=== PATIENT | female | born 1990 | race Hispanic/Latino ===

== ENCOUNTER 2018-04-03 14:40 | Emergency (ER) | payer OTHER ==
[2018-04-03 15:38] LABS: Absolute Lymphocytes (CBC) 3.2 K/uL (0.7-4.9); Absolute Monocytes 0.7 K/uL (0.1-1.3); Absolute Neutrophil 7.4 K/uL (1.8-8.0); BUN Blood Urea Nitrogen 6 mg/dL (6-20); Basophils % 0.4 % (0-1.3); Bicarbonate 25 mEq/L (21-31); Glucose Level 83 mg/dL (65-120); Hematocrit 39.9 % (36.0-45.0); MCH 29.7 pg (27.0-35.0); MCV 87.6 fL (80-100); MPV 7.7 fL (7.6-11.3); Monocytes % 6.1 % (3.3-12.3); Potassium 3.8 mEq/L (3.6-5.0); RBC Red Blood Cell Count 4.55 M/uL (3.86-4.86); Sodium Level 135 mEq/L (135-145)
[2018-04-03 16:02] LABS: Urine Blood 3+ (NEG); Urine Glucose NEGATIVE (NEG); Urine Protein 1+ (NEG); Urine pH 7.5 (5.0-7.0)
[2018-04-03 16:04] LABS: HCG, Quantitative 587.6 mIU/mL (<5)
--- NOTE | 2018-04-03 17:38 | EDPHYS ---
Physician Documentation [facility] Name: Gloria Coats Age: 28 yrs Sex: Female : 1990 Arrival Date: 04/03/2018 Time: 14:41 Bed 24 Private MD: Out, of [facility], [facility] ED Physician Benja Fagan HPI: 04/03 15:43 This 28 yrs old Female presents to ER via Ambulatory with complaints of pm1 Vaginal Bleeding, + Preg <12wks. 15:43 The patient presents to the emergency department with vaginal bleeding, that is light, pm1 reports using 1 pads or tampons per day. The estimated gestational age is 6 weeks. course: care: private OB physician, Seen about 1 week ago, Leakage of Fluid: none appreciated, Ultrasound: the patient had an ultrasound, Risk/complications: Preeclampsia with last child. Previous pregnancies: in previous pregnancies patient has had vaginal delivery. Associated signs and symptoms: Pertinent positives: cramping, Pertinent negatives: chest pain, diarrhea, dysuria, fever, nausea, shortness of breath, vaginal discharge, vomiting. The patient has experienced similar episodes in the past, several times. The patient has been recently seen by a physician: Last week for visit. 15:43 Patient with irregular menses, not certain of gestational age. 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 - Social history:: Smoking status: Patient uses tobacco products, denies chronic smoking, but will smoke occasionally. - Ebola Screening: : Patient negative for fever greater than or equal to 101.5 degrees Fahrenheit, and additional compatible Ebola Virus Disease symptoms Patient denies exposure to infectious person Patient denies travel to an Ebola-affected area in the 21 days before illness onset No symptoms or risks identified at this time. ROS: 15:53 Constitutional: Negative for fever, chills, and weight loss, Eyes: Negative for injury, pm1 pain, redness, and discharge, ENT: Negative for injury, pain, and discharge, Neck: Negative for injury, pain, and swelling, Cardiovascular: Negative for chest pain, palpitations, and edema, Respiratory: Negative for shortness of breath, cough, wheezing, and pleuritic chest pain, Back: Negative for injury and pain. 15:53 MS/Extremity: Negative for injury and deformity, Skin: Negative for injury, rash, and discoloration, Neuro: Negative for headache, weakness, numbness, tingling, and seizure. 15:53 Abdomen/GI: Positive for abdominal cramps, of the suprapubic area. 15:53 : Positive for vaginal bleeding, Negative for burning with urination, difficulty urinating. Exam: 15:53 Constitutional: This is a well developed, well nourished patient who is awake, alert, pm1 and in no acute distress. Head/Face: Normocephalic, atraumatic. Eyes: Pupils equal round and reactive to light, extra-ocular motions intact. Lids and lashes normal. Conjunctiva and sclera are non-icteric and not injected. Cornea within normal limits. Periorbital areas with no swelling, redness, or edema. ENT: Nares patent. No nasal discharge, no septal abnormalities noted. Tympanic membranes are normal and external auditory canals are clear. Oropharynx with no redness, swelling, or masses, exudates, or evidence of obstruction, uvula midline. Mucous membranes moist. Neck: Trachea midline, no thyromegaly or masses palpated, and no cervical lymphadenopathy. Supple, full range of motion without nuchal rigidity, or vertebral point tenderness. No Meningismus. Chest/axilla: Normal chest wall appearance and motion. Nontender with no deformity. No lesions are appreciated. Cardiovascular: Regular rate and rhythm with a normal S1 and S2. No gallops, murmurs, or rubs. No pulse deficits. Respiratory: Lungs have equal breath sounds bilaterally, clear to auscultation and percussion. No rales, rhonchi or wheezes noted. No increased work of breathing, no retractions or nasal flaring. Abdomen/GI: Soft, non-tender, with normal bowel sounds. No distension or tympany. No guarding or rebound. No evidence of tenderness throughout. Back: No spinal tenderness. No costovertebral tenderness. Full range of motion. Skin: Warm, dry with normal turgor. Normal color with no rashes, no lesions, and no evidence of cellulitis. MS/ Extremity: Pulses equal, no cyanosis. Neurovascular intact. Full, normal range of motion. 15:53 Neuro: Orientation: is normal, Motor: is normal, moves all fours, Gait: is steady, at a normal pace, without difficulty. Vital Signs: 14:58 BP 112 / 82; Pulse 86; Resp 17; Temp 97.3; Pulse Ox 98% on R/A; Weight 90.72 kg; Height aj 5 ft. 3 in. (160.02 cm); 16:24 BP 93 / 51; Pulse 67; Resp 17; Pulse Ox 97% on R/A; kr2 17:41 BP 102 / 68; Pulse 97; Resp 16; Pulse Ox 99% on R/A; kr2 14:58 Body Mass Index 35.43 (90.72 kg, 160.02 cm) aj MDM: 15:06 Patient medically screened. pm1 15:55 Data reviewed: vital signs. Data interpreted: Pulse oximetry: on room air is 98 %. pm1 Interpretation: normal. 17:31 Counseling: I had a detailed discussion with the patient and/or guardian regarding: the pm1 historical points, exam findings, and any diagnostic results supporting the discharge/admit diagnosis, lab results, radiology results, the need for outpatient follow up, an OB/Gyne specialist, to return to the emergency department if symptoms worsen or persist or if there are any questions or concerns that arise at home. 17:31 Refusal of service: The patient/guardian displays adequate decision making capability pm1 and despite a detailed discussion of alternatives, benefits, risks, and consequences refuses: Patient does not want to wait for the ultrasound results and urine. Patient instructed to follow up with OB in 48 hours for repeat beta hcg. Patient with beta hcg level 587. Impression: early , threatened miscarriage. 04/03 15:07 Order name: Quantitative Hcg; Complete Time: 16:04 pm1 04/03 15:07 Order name: Abo/rh Typing; Complete Time: 16:53 pm1 04/03 15:07 Order name: Basic Metabolic Panel; Complete Time: 16:04 pm1 04/03 15:07 Order name: CBC with Diff; Complete Time: 16:20 pm1 04/03 15:49 Order name: Urine Dipstick--Ancillary (enter results); Complete Time: 16:04 em1 04/03 15:49 Order name: Urine --Ancillary (enter results); Complete Time: 16:04 em1 04/03 15:07 Order name: Urine Test (obtain specimen); Complete Time: 15:49 pm1 04/03 15:07 Order name: IV Saline Lock; Complete Time: 15:48 pm1 04/03 15:07 Order name: Labs collected and sent; Complete Time: 15:48 pm1 04/03 15:07 Order name: NPO; Complete Time: 15:48 pm1 04/03 15:07 Order name: Urine Dipstick-Ancillary (obtain specimen); Complete Time: 15:49 pm1 04/03 15:43 Order name: US Transvaginal Ob pm1 04/03 17:30 Order name: Urine Microscopic Only pm1 Administered Medications: No medications were administered Point of Care Testing: Urine : 15:15 hCG Reading: Positive; kr2 Disposition: 19:06 Co-signature as Attending Physician, Benja Fagan MD. rn Disposition: 04/03/18 17:37 Discharged to Home. Impression: Threatened . - Condition is Stable. - Discharge Instructions: Threatened Miscarriage, Pelvic Rest. - Medication Reconciliation Form, Thank You Letter form. - Follow up: Emergency Department; When: As needed; Reason: Worsening of condition. Follow up: Private Physician; When: 48 Hours; Reason: Recheck today's complaints, Continuance of care, Repeat Beta-HCG (48 Hours), Re-evaluation by your physician. - Problem is new. - Symptoms have improved. Signatures: Dispatcher [employer] Jovanna eKnny RN RN aj Nieto, Roman, MD MD rn Marinas, Patrick, KADEN HELPER MARBLE FINISHER pm1 Tracie Vasquez RN RN kr2 Corrections: (The following items were deleted from the chart) 17:46 17:37 04/03/2018 17:37 Discharged to Home. Impression: Threatened . Condition kr2 is Stable. Forms are Medication Reconciliation Form, Thank You Letter, Antibiotic Education, Prescription Opioid Use. Follow up: Emergency Department; When: As needed; Reason: Worsening of condition. Follow up: Private Physician; When: 48 Hours; Reason: Recheck today's complaints, Continuance of care, Repeat Beta-HCG (48 Hours), Re-evaluation by your physician. Problem is new. Symptoms have improved. pm1
--- NOTE | 2018-04-03 17:38 | ER ---
Nurse's Notes [facility] Name: Gloria Coats Age: 28 yrs Sex: Female : 1990 Arrival Date: 04/03/2018 Time: 14:41 Bed 24 Private MD: Out, [facility] Diagnosis: Threatened Presentation: 04/03 14:57 Presenting complaint: Patient states: Vaginal spotting for 1 week. Patient reports she aj is 6 weeks . Transition of care: patient was not received from another setting of care. Onset of symptoms was March 29, 2018. Risk Assessment: Do you want to hurt yourself or someone else? Patient reports no desire to harm self or others. Care prior to arrival: None. 14:57 Method Of Arrival: Ambulatory 14:57 Acuity: MYRA 3 aj 15:05 Initial Sepsis Screen: Does the patient meet any 2 criteria? No. Patient's initial kr2 sepsis screen is negative. Does the patient have a suspected source of infection? No. Patient's initial sepsis screen is negative. Triage Assessment: 14:58 General: Appears in no apparent distress. comfortable, Behavior is calm, cooperative, aj appropriate for age. Neuro: Level of Consciousness is awake, alert, obeys commands, Oriented to person, place, time, situation, Appropriate for age. Respiratory: Airway is patent Respiratory effort is even, unlabored, Respiratory pattern is regular, symmetrical. : Reports vaginal bleeding that is brown, spotty. Derm: Skin is intact, is healthy with good turgor, Skin is pink, warm \\T\\ dry. normal. 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 - Social history:: Smoking status: Patient uses tobacco products, denies chronic smoking, but will smoke occasionally. - Ebola Screening: : Patient negative for fever greater than or equal to 101.5 degrees Fahrenheit, and additional compatible Ebola Virus Disease symptoms Patient denies exposure to infectious person Patient denies travel to an Ebola-affected area in the 21 days before illness onset No symptoms or risks identified at this time. Screenin:05 Abuse screen: Denies threats or abuse. Denies injuries from another. Nutritional kr2 screening: No deficits noted. Tuberculosis screening: No symptoms or risk factors identified. Fall Risk None identified. Assessment: 15:05 Obstetrical Assessment: General assessment: awake and alert, skin warm and dry, kr2 respirations even and unlabored. General: Appears in no apparent distress. comfortable, well groomed, well developed, well nourished, Behavior is calm, cooperative, appropriate for age. Pain: Denies pain. Neuro: Level of Consciousness is awake, alert, obeys commands, Oriented to person, place, time, situation, Appropriate for age. Cardiovascular: Capillary refill < 3 seconds in bilateral fingers Patient's skin is warm and dry. Respiratory: Airway is patent Respiratory effort is even, unlabored, Respiratory pattern is regular, symmetrical. GI: Abdomen is flat, non-distended. : Denies burning with urination, pain. 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 EENT: Oral mucosa is moist. Derm: Skin is intact, is healthy with good turgor, Skin is pink, warm \\T\\ dry. Musculoskeletal: Circulation, motion, and sensation intact. 16:30 Reassessment: Patient appears in no apparent distress at this time. Patient and/or kr2 family updated on plan of care and expected duration. Pain level reassessed. Patient is alert, oriented x 3, equal unlabored respirations, skin warm/dry/pink. Patient denies pain at this time. 17:41 Reassessment: Patient appears in no apparent distress at this time. Patient is alert, kr2 oriented x 3, equal unlabored respirations, skin warm/dry/pink. Patient came out of room stating she was leaving, "I can't stand waiting anymore I am just going home. Pat had removed her IV herself and had the site covered with a papertowel. Bleeding stopped, bandage applied. Provider present and prepared patient for discharge. Patient agreed to wait for discharge instructions. Vital Signs: 14:58 BP 112 / 82; Pulse 86; Resp 17; Temp 97.3; Pulse Ox 98% on R/A; Weight 90.72 kg; Height aj 5 ft. 3 in. (160.02 cm); 16:24 BP 93 / 51; Pulse 67; Resp 17; Pulse Ox 97% on R/A; kr2 17:41 BP 102 / 68; Pulse 97; Resp 16; Pulse Ox 99% on R/A; kr2 14:58 Body Mass Index 35.43 (90.72 kg, 160.02 cm) ED Course: 14:41 Patient arrived in ED. sb2 14:41 Out, of [facility] is Private Physician. sb2 14:58 Triage completed. aj 14:58 Arm band placed on left wrist. Patient placed in an exam room. aj 15:03 Tracie Vasquez, JOEL is Primary Nurse. kr2 15:05 Adrien Cardozo NP is PHCP. pm1 15:05 Benja Fagan MD is Attending Physician. pm1 15:05 Patient has correct armband on for positive identification. Bed in low position. Call kr2 light in reach. Side rails up X 1. Adult w/ patient. Pulse ox on. NIBP on. Door closed. Warm blanket given. Head of bed elevated. 15:15 Inserted saline lock: 20 gauge in right antecubital area, using aseptic technique. kr2 Blood collected. 15:58 Patient taken to ultrasound. via wheelchair. cy 16:05 US Transvaginal Ob In Process Unspecified. EDMS 17:44 No provider procedures requiring assistance completed. IV was discontinued by the kr2 patient. 17:45 DC'd by patient. kr2 Administered Medications: No medications were administered Point of Care Testing: Urine : 15:15 hCG Reading: Positive; kr2 Outcome: 17:37 Discharge ordered by . pm1 17:44 Discharged to home ambulatory, with family. kr2 17:44 Condition: stable 17:44 Discharge instructions given to patient, family, Instructed on discharge instructions, follow up and referral plans. Demonstrated understanding of instructions, follow-up care. 17:46 Patient left the ED. kr2 Signatures: Dispatcher [employer] EDMS Jovanna Yuan RN RN aj Adrien Cardozo, KADEN RISK ENGINEER pm1 Tracie Vasquez RN RN kr2 Sinan Bakereau, aSndra sb2
--- NOTE | 2018-04-03 18:10 | RAD REPORT ---
EXAM DESCRIPTION: US - Transvaginal OB - 04/03/2018 4:04 pm CLINICAL HISTORY: Vaginal bleeding, pelvic pain COMPARISON: None. FINDINGS: Endometrium is 5 mm in thickness. No discrete endometrial mass or polyp. No hematoma or ot her suspicious finding within the endometrial cavity. Endometrium - myometrium interface is normal. A 2.2 centimeter posterior fundal fibroid is identified. Uterus overall is 8.7 x 4.8 x 7.2 cm. Both ovaries are identified and normal in size. No dominant solid or cystic ovarian or adnexal findin g. No blood or fluid in the cul-de-sac. IMPRESSION: Pelvic ultrasound shows no suspicious or emergent finding. A 2.2 cm intramural posterior fundal fibroid is present, not acutely significant.
[2018-04-03 20:46] LABS: Urine Bacteria 20-50 /HPF (<20); Urine Culture Reflex Order REFLEXED
== END 2018-04-03 17:46 | disposition home or self-care (01) ==
LOC: ER 14:40
DX: O20.0 Threatened abortion (principal); Z3A.01 Less than 8 weeks gestation of pregnancy; F17.200 Nicotine dependence, unspecified, uncomplicated
CPT/HCPCS: 36415; 76817; 80048; 81003; 81015; 81025; 84702; 85025; 86900; 86901; 87086; 87088; 99284

== ENCOUNTER 2018-04-10 18:48 | Emergency (ER) | payer OTHER ==
[2018-04-10] MEDS ORDERED: NA CHLORIDE 0.9% 1,000 ML ONE (19:54)
[2018-04-10 20:06] LABS: BUN Blood Urea Nitrogen 7 mg/dL (6-20); Bicarbonate 27 mEq/L (21-31); Glucose Level 97 mg/dL (65-120); Potassium 3.3 mEq/L (3.6-5.0); Sodium Level 136 mEq/L (135-145)
[2018-04-10 20:09] LABS: Absolute Lymphocytes (CBC) 2.4 K/uL (0.7-4.9); Absolute Monocytes 0.7 K/uL (0.1-1.3); Absolute Neutrophil 10.5 K/uL (1.8-8.0); Basophils % 0.3 % (0-1.3); Eosinophils % 1.7 % (0-4.4); Hematocrit 39.1 % (36.0-45.0); Lymphocytes % 17.5 % (15.3-44.8); MCH 29.5 pg (27.0-35.0); MCV 87.7 fL (80-100); MPV 7.9 fL (7.6-11.3); Monocytes % 5.3 % (3.3-12.3); RBC Red Blood Cell Count 4.46 M/uL (3.86-4.86)
[2018-04-10 20:29] LABS: Urine Blood 3+ (NEG); Urine Glucose NEGATIVE (NEG); Urine Protein 1+ (NEG); Urine Specific Gravity 1.025 (1.005-1.030); Urine pH 6.5 (5.0-7.0)
--- NOTE | 2018-04-10 20:58 | RAD REPORT ---
EXAM DESCRIPTION: US - Transvaginal OB - 04/10/2018 8:42 pm CLINICAL HISTORY: Vaginal bleeding COMPARISON: None. FINDINGS: Endometrium is 5-6 mm in thickness. No endometrial mass or polyp. No gestational sac or sa c remnant. Uterus is 8.5 x 4.9 x 6.0 cm. In the posterior fundal portion of the uterus a 3 centimeter slightly echogenic and heterogeneous mass is present believed to be incidental fibroid. No mass effe ct on the endometrium. Right ovary is 2.9 x 1.7 x 1.9 cm. Left ovary is 2.7 x 1.6 x 2.1 cm. No suspicious ovarian or adnexal finding. No free fluid. IMPRESSION: No endometrial abnormality. Approximately 3 centimeter fundal fibroid. No ovarian or adnexal abnormality.
--- NOTE | 2018-04-10 22:27 | ER ---
Nurse's Notes [facility] Name: Gloria Coats Age: 28 yrs Sex: Female : 1990 Arrival Date: 04/10/2018 Time: 18:51 Bed 28 Private MD: Out, [facility] Diagnosis: Threatened ; related conditions, unspecified, first trimester Presentation: 04/10 19:07 Presenting complaint: Patient states: Vaginal bleeding for 2 weeks. Seen in this ER for aj same complaint on 04/03 and asked to follow up. Patient reports soonest obgyn appointment available is in April. Transition of care: patient was not received from another setting of care. Onset of symptoms was March 29, 2018. Risk Assessment: Do you want to hurt yourself or someone else? Patient reports no desire to harm self or others. Care prior to arrival: None. 19:07 Method Of Arrival: Ambulatory aj 19:07 Acuity: MYRA 3 aj 19:56 Initial Sepsis Screen: Does the patient meet any 2 criteria? No. Patient's initial rk2 sepsis screen is negative. Does the patient have a suspected source of infection? No. Patient's initial sepsis screen is negative. Triage Assessment: 19:09 General: Appears in no apparent distress. comfortable, Behavior is calm, cooperative, aj appropriate for age. Pain: Denies pain. Neuro: Level of Consciousness is awake, alert, obeys commands, Oriented to person, place, time, situation, Appropriate for age. Respiratory: Airway is patent Respiratory effort is even, unlabored, Respiratory pattern is regular, symmetrical. : Reports vaginal bleeding that is light flow. : Reports vaginal bleeding that is with clots. Derm: Skin is intact, is healthy with good turgor, Skin is dry, Skin is pink, warm \T\ dry. normal. 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 - Social history:: Smoking status: Patient/guardian denies using tobacco, Smoking status: . - Ebola Screening: : Patient negative for fever greater than or equal to 101.5 degrees Fahrenheit, and additional compatible Ebola Virus Disease symptoms Patient denies exposure to infectious person Patient denies travel to an Ebola-affected area in the 21 days before illness onset No symptoms or risks identified at this time. Screenin:31 Abuse screen: Denies threats or abuse. Nutritional screening: No deficits noted. tl3 Tuberculosis screening: No symptoms or risk factors identified. Fall Risk None identified. Assessment: 19:25 General: Appears in no apparent distress. comfortable, well groomed, well developed, tl3 well nourished, Behavior is calm, cooperative, appropriate for age. Pain: Complains of pain in suprapubic area, right lower quadrant and left lower quadrant. Neuro: Level of Consciousness is awake, alert, obeys commands, Oriented to person, place, time, situation, Appropriate for age. Cardiovascular: Patient's skin is warm and dry. Respiratory: Airway is patent Respiratory effort is even, unlabored, Respiratory pattern is regular, symmetrical. GI: No signs and/or symptoms were reported involving the gastrointestinal system. : No signs and/or symptoms were reported regarding the genitourinary system. Derm: No deficits noted. No signs and/or symptoms reported regarding the dermatologic system. Musculoskeletal: No deficits noted. No signs and/or symptoms reported regarding the musculoskeletal system. 19:25 : Reports vaginal bleeding that is brown, with clots, moderate flow, vaginal bleeding tl3 for the last two weeks was seen here last week for same, now bleeding is heavier and cramping is heavier and radiates to her lower back. Has not seen PROFESSIONAL SECURITY OFFICER earliest appoint ment was mid April, even with bleeding. 19:57 Obstetrical Assessment: General assessment: awake and alert, skin warm and dry, rk2 respirations even and unlabored. 20:53 Reassessment: Pt. returned from US. rk2 21:59 Reassessment: Patient appears in no apparent distress at this time. No changes from rk2 previously documented assessment. Patient and/or family updated on plan of care and expected duration. Pain level reassessed. No needs voiced \T\ this time. Vital Signs: 19:09 BP 117 / 76; Pulse 83; Resp 16; Temp 97.8; Pulse Ox 100% on R/A; Weight 90.72 kg; aj Height 5 ft. 5 in. (165.10 cm); 19:25 Pulse 83; Resp 16; Pulse Ox 98% on R/A; tl3 21:21 BP 110 / 66; Pulse 68; Resp 17; Pulse Ox 97% on R/A; rk2 22:30 BP 117 / 83; Pulse 69; Resp 17; Pulse Ox 100% on R/A; rk2 19:09 Body Mass Index 33.28 (90.72 kg, 165.10 cm) aj Vitals: 22:52 Heart Tones NA. rk2 ED Course: 18:51 Patient arrived in ED. mr 18:51 Out, of Town is Private Physician. mr 19:09 Triage completed. aj 19:09 Arm band placed on right wrist. Patient placed in waiting room, Patient notified of wait time. 19:21 Akanksha Corrales, RN is Primary Nurse. rk2 19:31 Patient has correct armband on for positive identification. Placed in gown. Bed in low tl3 position. Call light in reach. Side rails up X 1. Adult w/ patient. Pulse ox on. NIBP on. 19:31 No provider procedures requiring assistance completed. tl3 19:42 Bruno Cervantes MD is Attending Physician. [facility] 20:20 US Transvaginal Ob Sent. rk2 20:42 US Transvaginal Ob In Process Unspecified. EDMS 22:25 Lars Kwan MD is Referral Physician. suzette 22:52 IV discontinued. rk2 Administered Medications: 19:59 Drug: NS 0.9% 1000 ml Route: IV; Rate: 1 bolus; Site: left antecubital; rk2 21:06 Follow up: Response: No adverse reaction; IV Status: Completed infusion rk2 Point of Care Testing: Urine : 22:53 hCG Reading: Positive; Control Reading: Positive; rk2 Outcome: 22:26 Discharge ordered by . suzette 22:48 Discharged to home ambulatory. rk2 22:48 Condition: good 22:48 Discharge instructions given to patient. 22:53 Patient left the ED. rk2 Signatures: Dispatcher [employer] EDNJ Jovanna Yuan RN RN aj Anderson, Corey, MD MD cha Rivera, Maria mr Akanksha Corrales, RN RN rk2 Emil, Charlene, RN RN tl3
--- NOTE | 2018-04-10 22:27 | EDPHYS ---
Physician Documentation [facility] Name: Gloria Coats Age: 28 yrs Sex: Female : 1990 Arrival Date: 04/10/2018 Time: 18:51 Bed 28 Private MD: Out, [facility] ED Physician Bruno Cervantes HPI: 04/10 19:54 This 28 yrs old Female presents to ER via Ambulatory with complaints of suzette Vaginal Bleeding, + Preg <12wks. 19:54 The patient presents to the emergency department with vaginal bleeding. The estimated suzette gestational age is 6 weeks. course: care: none. Previous pregnancies: in previous pregnancies patient has had vaginal delivery. Associated signs and symptoms: The patient has no apparent associated signs or symptoms. 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 - Social history:: Smoking status: Patient/guardian denies using tobacco, Smoking status: . - Ebola Screening: : Patient negative for fever greater than or equal to 101.5 degrees Fahrenheit, and additional compatible Ebola Virus Disease symptoms Patient denies exposure to infectious person Patient denies travel to an Ebola-affected area in the 21 days before illness onset No symptoms or risks identified at this time. ROS: 19:54 Constitutional: Negative for fever, chills, and weight loss, Eyes: Negative for injury, suzette pain, redness, and discharge, ENT: Negative for injury, pain, and discharge, Neck: Negative for injury, pain, and swelling, Cardiovascular: Negative for chest pain, palpitations, and edema, Respiratory: Negative for shortness of breath, cough, wheezing, and pleuritic chest pain, Back: Negative for injury and pain, MS/Extremity: Negative for injury and deformity, Skin: Negative for injury, rash, and discoloration, Neuro: Negative for headache, weakness, numbness, tingling, and seizure, Psych: Negative for depression, anxiety, suicide ideation, homicidal ideation, and hallucinations, Allergy/Immunology: Negative for hives, rash, and allergies, Endocrine: Negative for neck swelling, polydipsia, polyuria, polyphagia, and marked weight changes, Hematologic/Lymphatic: Negative for swollen nodes, abnormal bleeding, and unusual bruising. 19:54 Abdomen/GI: Positive for abdominal pain. 19:54 : Positive for vaginal bleeding. Exam: 19:54 Constitutional: This is a well developed, well nourished patient who is awake, alert, suzette and in no acute distress. Head/Face: Normocephalic, atraumatic. Eyes: Pupils equal round and reactive to light, extra-ocular motions intact. Lids and lashes normal. Conjunctiva and sclera are non-icteric and not injected. Cornea within normal limits. Periorbital areas with no swelling, redness, or edema. ENT: Nares patent. No nasal discharge, no septal abnormalities noted. Tympanic membranes are normal and external auditory canals are clear. Oropharynx with no redness, swelling, or masses, exudates, or evidence of obstruction, uvula midline. Mucous membranes moist. Neck: Trachea midline, no thyromegaly or masses palpated, and no cervical lymphadenopathy. Supple, full range of motion without nuchal rigidity, or vertebral point tenderness. No Meningismus. Chest/axilla: Normal chest wall appearance and motion. Nontender with no deformity. No lesions are appreciated. Cardiovascular: Regular rate and rhythm with a normal S1 and S2. No gallops, murmurs, or rubs. Normal PMI, no JVD. No pulse deficits. Respiratory: Lungs have equal breath sounds bilaterally, clear to auscultation and percussion. No rales, rhonchi or wheezes noted. No increased work of breathing, no retractions or nasal flaring. Abdomen/GI: Soft, non-tender, with normal bowel sounds. No distension or tympany. No guarding or rebound. No evidence of tenderness throughout. Back: No spinal tenderness. No costovertebral tenderness. Full range of motion. Female : Normal external genitalia. Skin: Warm, dry with normal turgor. Normal color with no rashes, no lesions, and no evidence of cellulitis. MS/ Extremity: Pulses equal, no cyanosis. Neurovascular intact. Full, normal range of motion. Neuro: Awake and alert, GCS 15, oriented to person, place, time, and situation. Cranial nerves II-XII grossly intact. Motor strength 5/5 in all extremities. Sensory grossly intact. Cerebellar exam normal. Normal gait. Psych: Awake, alert, with orientation to person, place and time. Behavior, mood, and affect are within normal limits. Vital Signs: 19:09 BP 117 / 76; Pulse 83; Resp 16; Temp 97.8; Pulse Ox 100% on R/A; Weight 90.72 kg; aj Height 5 ft. 5 in. (165.10 cm); 19:25 Pulse 83; Resp 16; Pulse Ox 98% on R/A; tl3 21:21 BP 110 / 66; Pulse 68; Resp 17; Pulse Ox 97% on R/A; rk2 22:30 BP 117 / 83; Pulse 69; Resp 17; Pulse Ox 100% on R/A; rk2 19:09 Body Mass Index 33.28 (90.72 kg, 165.10 cm) aj MDM: 19:42 Patient medically screened. [facility] 22:25 Data reviewed: vital signs, nurses notes, lab test result(s), radiologic studies, suzette ultrasound. 04/10 19:30 Order name: Abo/rh Typing; Complete Time: 22:23 [facility] 04/10 19:30 Order name: Basic Metabolic Panel; Complete Time: 22:23 [facility] 04/10 19:30 Order name: CBC with Diff; Complete Time: 22:23 [facility] 04/10 19:44 Order name: Quantitative Hcg; Complete Time: 22:23 [facility] 04/10 19:54 Order name: Urine Dipstick--Ancillary (enter results); Complete Time: 22:23 [facility] 04/10 19:54 Order name: Urine --Ancillary (enter results); Complete Time: 22:23 [facility] 04/10 19:30 Order name: IV Saline Lock; Complete Time: 19:46 [facility] 04/10 19:30 Order name: Labs collected and sent; Complete Time: 19:46 [facility] 04/10 19:30 Order name: NPO; Complete Time: 19:46 [facility] 04/10 19:30 Order name: Urine Dipstick-Ancillary (obtain specimen); Complete Time: 20:20 [facility] 04/10 19:44 Order name: US Transvaginal Ob; Complete Time: 22:23 [facility] 04/10 22:24 Order name: PO challenge: juice; Complete Time: 22:43 [facility] Administered Medications: 19:59 Drug: NS 0.9% 1000 ml Route: IV; Rate: 1 bolus; Site: left antecubital; rk2 21:06 Follow up: Response: No adverse reaction; IV Status: Completed infusion rk2 Point of Care Testing: Urine : 22:53 hCG Reading: Positive; Control Reading: Positive; rk2 Disposition: 04/10/18 22:26 Discharged to Home. Impression: Threatened , related conditions, unspecified, first trimester. - Condition is Stable. - Discharge Instructions: Threatened Miscarriage, First Trimester of , [id number], First Trimester of , Threatened Miscarriage, [id number], Pelvic Rest. - Prescriptions for Vitamin 27- 0.8 mg Oral Tablet - take 1 tablet by ORAL route once daily; 30 tablet. - Medication Reconciliation Form, Thank You Letter, Antibiotic Education, Prescription Opioid Use form. - Follow up: Private Physician; When: 2 - 3 days; Reason: Recheck today's complaints, Continuance of care, Re-evaluation by your physician. Follow up: Lars Kwan; When: 2 - 3 days; Reason: Recheck today's complaints, Re-evaluation by your physician. - Problem is new. - Symptoms have improved. Signatures: Dispatcher [employer] Jovanna Kenny, Bruno Villarreal RN, MD MD cha Kidder, Rhonda, RN RN rk2 Corrections: (The following items were deleted from the chart) 22:53 22:26 04/10/2018 22:26 Discharged to Home. Impression: Threatened ; rk2 related conditions, unspecified, first trimester. Condition is Stable. Discharge Instructions: Threatened Miscarriage, First Trimester of , [id number], First Trimester of , Threatened Miscarriage, [id number], Pelvic Rest. Prescriptions for Vitamin 27-0.8 mg Oral Tablet - take 1 tablet by ORAL route once daily; 30 tablet. and Forms are Medication Reconciliation Form, Thank You Letter, Antibiotic Education, Prescription Opioid Use. Follow up: Private Physician; When: 2 - 3 days; Reason: Recheck today's complaints, Continuance of care, Re-evaluation by your physician. Follow up: Lars Kwan; When: 2 - 3 days; Reason: Recheck today's complaints, Re-evaluation by your physician. Problem is new. Symptoms have improved. suzette
== END 2018-04-10 22:53 | disposition home or self-care (01) ==
LOC: ER 18:48
DX: O20.0 Threatened abortion (principal); Z3A.01 Less than 8 weeks gestation of pregnancy
CPT/HCPCS: 36415; 76817; 80048; 81003; 81025; 84702; 85025; 86900; 86901; 96360; 99284; J7030